=== PATIENT | female | born 1965 | race Caucasian/White ===

== ENCOUNTER 2020-05-15 15:09 | Emergency (ER) | payer MEDICAID, SELFPAY ==
[2020-05-15 15:11] VITALS: BP 113/66; PULSE 64; RESP 14; TEMP 36.3; O2SAT 98
--- NOTE | 2020-05-15 15:35 | ED.GENADUL_ITS ---
Discharge Plan Disposition Patient Disposition: HOME Condition: Stable Discharge Details Clinical Impression: Foreign body in right ear Primary Care Provider: Rachel Trinh ED Provider: Gregorio Tejeda Home Meds and New Rx's Prescriptions: New azithromycin 500 mg tablet See Rx Instructions .ROUTE .COMPLEX Qty: 6 RF: 0 No Action Vitamin Supplements RF: 0 Discharge Instructions Additional Instructions: you have an appointment on Monday with Dr. Jones at 3pm at the [facility] building you can take 1000mg tylenol and 600mg ibuprofen every 6 hours for pain as needed Medical Decision Making Patient comes in stating decreased hearing and pain in the right ear and has been using ear plugs and one got stuck in her ear a week ago. She denies fevers, on exam external mastoid is normal, left tm and canal normal, right rm has pink foreign body reportedly and ear plug stuck in it. Will attempt removal pt unable to tolerate removal and could not remove it with suction or forceps. Referred to ent for evaluation on Monday, will start on azithromycin for possible tm infection though feel her discomfort is from the foreign body. Differential Diagnosis Differential Diagnosis: foreign body, otitis externa HPI General Mode of arrival: ambulatory . Date/Time Provider Initiated Documentation: 05/15/20 15:11 . Limitations to Documentation: no limitations . Information obtained by: patient . History of Present Illness 54 year old F presents to the emergency department with the chief complaint of right ear discomfort, described as moderate, and it has been constant. No relieving factors improve symptom(s), No exacerbating factors reported . Patient did receive the following treatments prior to arrival, none Related Data Home Medications Medication Instructions Recorded Confirmed Vitamin Supplements 05/15/20 azithromycin See Rx Instructions .ROUTE 05/15/20 .COMPLEX #6 tab Previous Rx's Medication Instructions Recorded azithromycin See Rx Instructions .ROUTE 05/15/20 .COMPLEX #6 tab Allergies Allergy/AdvReac Type Severity Reaction Status Date / Time Penicillins Allergy Severe anaphylaxis Unverified 05/15/20 15:21 ciprofloxacin Allergy Intermediate Hives Unverified 05/15/20 15:21 cephalexin [From Keflex] AdvReac Intermediate Unverified 05/15/20 15:22 General Stated Complaint: EarProblem MARILYN: 3 Review of Systems All systems reviewed & are unremarkable except as noted in HPI and below Constitutional Constitutional: Denies chills, Denies fever(s) and Denies weakness Cardiovascular Cardiovascular: Denies chest pain and Denies dyspnea Respiratory Respiratory: Denies cough and Denies dyspnea Gastrointestinal Gastrointestinal: Denies abdominal pain, Denies nausea and Denies vomiting Musculoskeletal Musculoskeletal: Denies joint swelling Integumentary/Breasts Skin/Breast: Denies rash Neurologic Neurologic: Denies weakness Psychiatric Psychiatric: Denies depression Endocrine Endocrine: Denies heat intolerance PFSH Social History Smoking/Tobacco Use Status: Never Smoking risk assessment performed?: Yes Alcohol Intake: never Drug use: Daily Substance use type: marijuana Do you feel safe at home: No Do you feel safe in your relationship?: No Additional Social history: but has other adults in the house states physically safe but not emotionally Exam Const General: anxious Orientation: alert HENMT Head: normal to inspection Ears: external ears normal General nose exam: external nose normal Mouth: moist mucous membranes Eyes General: appearance normal, both eyes and all related structures Neck Neck: normal visual inspection Resp Effort & Inspection: normal respiratory effort and able to speak in complete sentences Cardio Rate: regular rate Skin General skin exam: no rashes or lesions noted Neuro General: patient alert and patient oriented x3 Extrem General: normal to inspection Psych Mental Status: mental status grossly normal Course Vital Signs Vital signs: Vital Signs Temperature 36.3 C L 05/15/20 15:11 Pulse 64 05/15/20 15:11 Respiratory Rate 14 05/15/20 15:11 Blood Pressure 113/66 05/15/20 15:11 Pulse Oximetry 98 05/15/20 15:11 Temperature 36.3 C L 05/15/20 15:11 Temperature Source Skin 05/15/20 15:11 Pulse 64 05/15/20 15:11 Respiratory Rate 14 05/15/20 15:11 Respiratory Effort 05/15/20 15:25 Blood Pressure 113/66 05/15/20 15:11 Blood Pressure Position Sitting 05/15/20 15:11 Pulse Oximetry 98 05/15/20 15:11 Oxygen Delivery Method Room Air 05/15/20 15:11 Oxygen Flow Rate 0 05/15/20 15:11 Pain Level 2 05/15/20 15:27
--- NOTE | 2020-05-15 16:00 | NUR.NOTE ---
Nursing Note: Appt. w/Dr. Jones, May.18 @ 3pm. At the [facility] location. Rachel Richardson
== END 2020-05-15 16:17 | disposition home or self-care (01) ==
LOC: ER 16:12
PROVIDERS: Emergency Provider Emergency Medicine; PCP Family Medicine
DX: T16.1XXA Foreign body in right ear, initial encounter (principal)
CPT/HCPCS: 99283